=== PATIENT | female | born 1965 | race Caucasian/White ===

== ENCOUNTER 2024-03-20 22:26 | Emergency (ER) | payer BC ==
[2024-03-20] MEDS ORDERED: Albuterol 6.7 GM Inhaler INH ONE (22:27)
[2024-03-20] MEDS ORDERED: Amoxicillin/Clavulanate K 875-125 MG Tab PO ONE (22:27)
[2024-03-20] MEDS: Sodium Chloride 0.9% 10 ML Syringe FLUSH PRN (22:55)
[2024-03-20] MEDS: Nitroglycerin 0.4 MG Tab.SL SL PRN (22:58)
[2024-03-20] MEDS: Aspirin 81 MG Tab.Chew PO ONE (22:59)
[2024-03-20] MEDS: Sodium Chloride 0.9% 1,000 ML IV SCH (23:00)
[2024-03-20] MEDS: Ondansetron 4 MG/2 ML SDV IVPUSH ONE (23:01)
[2024-03-20 23:12] LABS: BASOPHILS PERCENT AUTO 0.3 % (0.2-1.5); EOSINOPHILS ABSOLUTE AUTO 0.2 x10-3/uL (0.0-0.8); EOSINOPHILS PERCENT AUTO 1.8 % (0.6-8.1); HEMATOCRIT 36.9 % (34.2-48.2); HEMOGLOBIN 12.2 g/dL (11.4-15.5); LYMPHOCYTES ABSOLUTE AUTO 1.8 x10-3/uL (1.0-4.4); LYMPHOCYTES PERCENT AUTO 13.1 % (18.4-52.1); MEAN CORPUSCULAR HGB CONC 33.1 g/dL (31.9-34.8); MEAN CORPUSCULAR VOLUME 90.6 fL (76.7-100.5); MEAN PLATELET VOLUME 8.5 fL (7.1-12.4); MONOCYTES ABSOLUTE AUTO 0.7 x10-3/uL (0.3-1.0); MONOCYTES PERCENT AUTO 5.5 % (4.4-15.7); NEUTROPHILS ABSOLUTE AUTO 10.8 x10-3/uL (1.5-6.3); NEUTROPHILS PERCENT AUTO 79.3 % (30.8-76.2); PLATELET COUNT,PLT 255 x10(3)uL (151-488); RED BLOOD CELL COUNT 4.07 x10(6)uL (3.60-5.20); RED CELL DISTRIBUTION WIDTH 13.6 % (12.3-16.5); WHITE BLOOD CELL COUNT,WBC 13.6 x10-3/uL (3.0-10.3)
[2024-03-20 23:14] LABS: BLOOD UREA NITROGEN,BUN 17 mg/dL (7-18); BUN/CREATININE RATIO 18.9 (9-20); CALCIUM 7.8 mg/dL (8.6-10.2); CARBON DIOXIDE,CO2 28 mmol/L (21-32); CHLORIDE,CL 107 mmol/L (100-110); CREATININE 0.9 mg/dL (0.55-1.02); ESTIMATED GFR 73 mL/min (>60); GLUCOSE RANDOM 113 mg/dL (80-116); POTASSIUM,K 3.6 mmol/L (3.5-5.3); SODIUM,NA 142 mmol/L (135-145)
[2024-03-20 23:25] LABS: A/G RATIO 1.2; ALANINE AMINOTRANSFERASE,ALT 26 U/L (12-36); ALBUMIN 3.3 g/dL (3.2-4.6); ALKALINE PHOSPHATASE 62 IU/L (56-112); ASPARTATE AMNIOTRANSFERASE,AST 19 IU/L (5-25); BILIRUBIN TOTAL 0.2 mg/dL (0.1-1.3); PROTEIN TOTAL,TP 6.1 g/dL (6.0-8.0); TROPONIN I 5.1 pg/mL (4.0-60.3)
[2024-03-20 23:39] LABS: D-DIMER QUANTITATIVE 0.26 mg/LFEU (0.0-0.59)
[2024-03-20 23:42] LABS: INR 0.98 (1.00-1.24); PROTHROMBIN TIME 10.2 sec (9.0-11.1); PTT,PARTIAL THROMBOPLSTIN TIME 22.7 SECONDS (24.4-33.2)
[2024-03-20] MEDS: Albuterol/Ipratropium 3.0-0.5 MG/3 ML Neb Soln NEB ONE (23:51)
[2024-03-20] MEDS: Ketorolac 30 MG/ML SDV IVPUSH ONE (23:56)
[2024-03-20] MEDS: Ampicillin/Sulbactam Na 3 GM in Sodium Chloride 0.9% 100 ML IV ONE (23:57)
== END 2024-03-21 01:27 | disposition home or self-care (01) ==
LOC: FB.ED 22:26
DX: J18.9 Pneumonia, unspecified organism (principal); Z88.8 Allergy status to other drugs, medicaments and biological substances
CPT/HCPCS: 36415; 71045; 80053; 83880; 84484; 85025; 85379; 85610; 85730; 93005; 93010; 94640; 96361; 96365; 96375; 99284; 99285; A9270; J0295; J1885; J2405; J7030; J7620